=== PATIENT | male | born 1955 | race Asian ===

== ENCOUNTER 2021-07-07 07:23 | Emergency (ER) | payer MEDICAID ==
[~2021-07-07] VITALS: Ht 165.1 cm; Wt 72.0 kg
[2021-07-07] MEDS ORDERED: IBUP-2028 MT (08:14)
[2021-07-07] MEDS ORDERED: AMOX-424 MT (08:14)
[2021-07-07] MEDS ORDERED: AMOXICILLIN/POTASSIUM CLAVULANATE 875/125MG TAB PO ONE (08:15)
[2021-07-07] MEDS ORDERED: IBUPROFEN 400MG TABLET PO ONE (08:15)
[2021-07-07 08:29] VITALS: BP 203/89
== END 2021-07-07 08:55 | disposition home or self-care (01) ==
LOC: ER 07:23
DX: H66.92 Otitis media, unspecified, left ear (principal); I10 Essential (primary) hypertension
CPT/HCPCS: 99283